=== PATIENT | female | born 1965 | race Hispanic/Latino ===

== ENCOUNTER 2022-06-28 10:41 | Outpatient (CLI) | payer OTHER | END 2022-06-28 10:42 | disposition home or self-care (01) | LOC: CSHMRI 10:41 | PROVIDERS: ATTEND Family Medicine | DX: S86.912D Strain of unspecified muscle(s) and tendon(s) at lower leg level, left leg, subsequent encounter (principal); S83.242A Other tear of medial meniscus, current injury, left knee, initial encounter; M17.12 Unilateral primary osteoarthritis, left knee; M94.8X6 Other specified disorders of cartilage, lower leg ==